=== PATIENT | female | born 1970 | race Caucasian/White ===

== ENCOUNTER 2018-08-30 15:57 | Emergency (ER) | payer OTHER ==
[2018-08-30] MEDS ORDERED: methylPREDNISolone ACETATE 80 MG/ML VIAL IM ONE (16:31)
[2018-08-30] MEDS ORDERED: KETOROLAC TROMETHAMINE 60 MG/2 ML VIAL IM ONE (16:31)
--- NOTE | 2018-08-30 16:41 | ED Physician Documentation ---
Low Back Pain - HISTORIAN Historian: patient - HPI Stated Complaint: right sciatic pain Chief Complaint: Low Back Pain/ Injury Additional Information: Patient is a 48-year-old female who presents to the ER ambulatory (steady gait) with c/o right sided sciatica that travels from the right buttock to posterior knee. She state that she has a chronic history of back pain but it recently flared about 3 months ago and got better and then started again 1 1/2 months ago. She states that she went on a walk yesterday and feels that it triggered her pain. She is sitting to the side of bed with legs hanging- no curvature while seated- negative straight leg raises. History: history of chronic pain:, back pain Onset: days ago Duration: continues in ED, intermittent Recent Injury: No Context: other (believes it was caused from walking and it flared) Where: other Other Injuries: denies: neck, head Severity: moderate Quality: burning, sharp, similar- prior back pain Associated Symptoms: denies: fever, chills, incontinence Worsened By:: movement to RT flexion Relieved By: upright position, remaining still - ROS CONST: no problems CVS/RESP: none EYES/ENT: none MS/SKIN/LYMPH: none Neuro/Psych: none GI/: denies: abdominal pain - PAST HX Past History: back pain, other (ulnar nerve pain, labral tear) Surgeries/Procedures: other (labral tear, unlnar nerve repair) Immunizations: UTD Allergies/Adverse Reactions: Allergies Allergy/AdvReac Type Severity Reaction Status Date / Time No Known Allergies Allergy Verified 08/30/18 16:24 Home Medications: Ambulatory Orders Medication Instructions Recorded Baclofen [Liorasal] 10 mg PO BID PRN #20 tablet 08/30/18 predniSONE [Deltasone] 20 mg PO DAILY #5 tablet 08/30/18 - SOCIAL HX Smoking History: non-smoker Alcohol Use: rarely Drug Use: none - FAMILY HX Family History: none - VITAL SIGNS Vital Signs: Vital Signs Temp Pulse Resp BP Pulse Ox 98.2 F 93 H 16 115/74 96 08/30/18 16:20 08/30/18 16:20 08/30/18 16:20 08/30/18 16:20 08/30/18 16:20 - REVIEWED ASSESSMENTS Nursing Assessment Reviewed: Yes Vitals Reviewed: Yes ED Results Lab/Radiology - Orders Orders: ED Orders Category Date Time Status Ketorolac Tromethamine [Toradol] Med 08/30/18 16:31 Once 60 mg IM NOW ONE methylPREDNISolone ACETATE [Depo-Medrol] Med 08/30/18 16:31 Once 80 mg IM NOW ONE Low Back Pain/Injury - Physical Exam General Appearance: no acute distress, alert EENT: eye inspection normal, ENT inspection normal, pharynx normal, ANITHA Neck: non-tender, painless ROM Resp/CVS: chest non-tender, breath sounds nml, heart sounds nml Abdomen: non-tender Back: vertebral point-tendernes (right iliac) Straight Leg Raising: Negative Left, Negative Right Neuro/Psych: oriented x3, motor nml, sensation nml, bilat. doriflexion nml Skin: warm/dry, normal color Extremities: normal range of motion Discharge Clincal Impression: Lumbar radiculopathy, chronic Prescriptions: Baclofen [Liorasal] 10 mg PO BID PRN #20 tablet PRN Reason: muscle spasm predniSONE [Deltasone] 20 mg PO DAILY #5 tablet Referrals: Primary Doctor,No [Primary Care Provider] - 2 Days Additional Instructions: Take medications as directed May use heating pads Try Icy Hot or BenGay Follow up with PCP as needed Condition: Good Disposition: 01 HOME, SELF-CARE Decision to Admit: NO Decision Time: 16:38
[2018-08-30 16:50] VITALS: BP 112/74
== END 2018-08-30 16:47 | disposition home or self-care (01) ==
LOC: ED 15:57
DX: M54.16 Radiculopathy, lumbar region (principal)
CPT/HCPCS: 96372; 99282; 99283; J1040; J1885